=== PATIENT | female | born 1930 | race Two or more races ===

== ENCOUNTER → 2016-05-14 | Outpatient (CLI) | payer MEDICARE, MEDICAID ==
[~2016-05-14] MED LIST: IOHEXOL 350 MG/ML 100ML IJ ONE
[2016-05-14 11:10] VITALS: BP 122/60
[2016-05-14 11:55] VITALS: BP 147/57
== END | disposition home or self-care (01) ==
LOC: Rad HDHVI 09:25
PROVIDERS: ATTEND Internal Medicine Cardiovascular Disease
DX: I11.0 Hypertensive heart disease with heart failure (principal); I70.0 Atherosclerosis of aorta; I77.810 Thoracic aortic ectasia; J90 Pleural effusion, not elsewhere classified; J43.9 Emphysema, unspecified; R07.89 Other chest pain; G45.9 Transient cerebral ischemic attack, unspecified
CPT/HCPCS: 71275; 93306; 93880; G0463; Q9967; 96374

== ENCOUNTER → 2016-05-19 | Outpatient (CLI) | payer MEDICARE, MEDICAID ==
[~2016-05-19] MED LIST changes: +ADENOSINE 46 MG in GIVE UN-DILUTED 0 ML IV ONE; +ADENOSINE 90 MG/30 ML INJ IV ONE; -IOHEXOL 350 MG/ML 100ML IJ ONE
== END | disposition home or self-care (01) ==
LOC: Rad HDHVI 09:44
PROVIDERS: ATTEND Internal Medicine Cardiovascular Disease
DX: R07.9 Chest pain, unspecified (principal); I10 Essential (primary) hypertension; I70.0 Atherosclerosis of aorta; R06.02 Shortness of breath; R42 Dizziness and giddiness
CPT/HCPCS: 78452; 93005; 96374; 96375; A9500; J0153

== ENCOUNTER → 2016-06-11 | Outpatient (CLI) | payer MEDICARE, MEDICAID ==
[2016-06-11 11:00] VITALS: BP 106/71
[2016-06-11 11:40] VITALS: BP 115/62
[2016-06-11 16:41] LABS: INR 1.08 (0.9-1.15); Partial Thromboplastin Time 27.4 sec (22.64-33.71); Prothrombin Time 11.7 sec (9.37-12.3)
[2016-06-11 16:43] LABS: BUN/Creatinine Ratio 22.8; Calcium 9.2 mg/dL (8.5-10.1); Potassium 4.3 mmol/L (3.5-5.1)
[2016-06-11 17:02] LABS: Basophils # (auto) 0 uL; Basophils % (auto) 0.4 % (0.0-2.0); Eosinophils # (auto) 0.1 uL; Hematocrit 44.1 % (36.0-46.0); Hemoglobin 14.7 g/dL (12.2-16.2); Lymphocytes # (auto) 1.8 uL; Lymphocytes % (auto) 16.3 % (10.0-50.0); Mean Corpuscular Hgb Conc. 33.3 g/dL (32.0-36.0); Mean Corpuscular Volume 93.2 fL (80.0-100.0); Mean Platelet Volume 12.2 fL (7.4-10.4); Monocytes # (auto) 0.8 uL; Monocytes % (auto) 7.6 % (0.0-12.0); Neutrophils # (auto) 8.1 uL; Neutrophils % (auto) 74.7 % (37.0-80.0); Platelet Count (auto) 264 10^3/uL (140-450); Red Cell Distribution Width 15.4 % (11.6-16.0); SUSPECT VIEW TRANSMISSION; White Blood Cell 10.8 10^3/uL (4.4-10.8)
[2016-06-11 19:28] LABS: Giant Platelets Few; Platelet Estimate Adequate
== END | disposition home or self-care (01) ==
LOC: Rad HDHVI 10:48
PROVIDERS: ATTEND Internal Medicine Cardiovascular Disease
DX: I10 Essential (primary) hypertension (principal); D64.9 Anemia, unspecified; R79.1 Abnormal coagulation profile
CPT/HCPCS: 36415; 71020; 80048; 85025; 85610; 85730; 93005; G0463

== ENCOUNTER 2016-06-13 09:35 | Day surgery (SDC) | payer MEDICARE, MEDICAID ==
[~2016-06-13] VITALS: Ht 30.5 cm; Wt 0.5 kg
[2016-06-13] MEDS ORDERED: MIDAZOLAM HCL 1MG/1ML-2 ML VIAL IV ONE (10:30)
[2016-06-13] MEDS ORDERED: fentaNYL CITRATE 100 MCG/2 ML VL IV ONE (10:30)
== END 2016-06-13 15:07 | disposition home or self-care (01) ==
LOC: CATH 09:35
PROVIDERS: ATTEND Internal Medicine Cardiovascular Disease
DX: I35.0 Nonrheumatic aortic (valve) stenosis (principal); I34.0 Nonrheumatic mitral (valve) insufficiency; I35.1 Nonrheumatic aortic (valve) insufficiency; I07.1 Rheumatic tricuspid insufficiency; I10 Essential (primary) hypertension; E78.5 Hyperlipidemia, unspecified
CPT/HCPCS: 93312; J2250; J3010

== ENCOUNTER → 2017-10-15 | Outpatient (CLI) | payer MEDICARE, MEDICAID ==
[~2017-10-15] MED LIST changes: -ADENOSINE 46 MG in GIVE UN-DILUTED 0 ML IV ONE; -ADENOSINE 90 MG/30 ML INJ IV ONE; +ALBUTEROL SULF 2.5 MG/0.5ML(0.5%) NEB SOLN ONE; +SODIUM CHLORIDE 0.9 % NEB SOLN 3ML NEB ONE
== END | disposition home or self-care (01) ==
LOC: RT 08:47
PROVIDERS: ATTEND Internal Medicine Pulmonary Disease
DX: J44.9 Chronic obstructive pulmonary disease, unspecified (principal)
CPT/HCPCS: 94060; 94640; 94727; 94729